=== PATIENT | female | born 1995 | race Hispanic/Latino ===

== ENCOUNTER 2017-07-26 00:27 | Emergency (ER) | payer SELFPAY ==
--- NOTE | 2017-07-26 00:47 | ER ---
Nurse's Notes [facility] Name: Radha Goodson Age: 21 yrs Sex: Female : 1995 Arrival Date: 07/26/2017 Time: 00:30 Bed 8 Private MD: Diagnosis: Acute upper respiratory infection, unspecified Presentation: 07/26 00:42 Presenting complaint: Patient states: fever, chills, body aches, and sore throat since aa1 yesterday. Transition of care: patient was not received from another setting of care. Onset of symptoms was July 25, 2017. Initial Sepsis Screen: Does the patient meet any 2 criteria? No. Patient's initial sepsis screen is negative. Does the patient have a suspected source of infection? No. Patient's initial sepsis screen is negative. Care prior to arrival: None. 00:42 Method Of Arrival: Ambulatory aa1 00:42 Acuity: SACHIN 4 aa1 Historical: - Allergies: 00:44 No Known Allergies; aa1 - Home Meds: 00:44 None [Active]; aa1 - PMHx: 00:44 None; aa1 - PSHx: 00:44 None; aa1 - Immunization history:: Flu vaccine is not up to date. - Social history:: Smoking status: Patient/guardian denies using tobacco. Screenin:46 Abuse screen: Denies threats or abuse. Denies injuries from another. Nutritional aa1 screening: No deficits noted. Tuberculosis screening: No symptoms or risk factors identified. Fall Risk None identified. Assessment: 00:40 Reassessment: Pt refused flu swab, provider notified. aa1 00:46 General: Appears in no apparent distress. comfortable, Behavior is calm, cooperative, aa1 appropriate for age. Pain: Complains of pain in generalized Quality of pain is described as aching, Pain began 1 day ago. Neuro: Level of Consciousness is awake, alert, obeys commands, Oriented to person, place, time, situation. Respiratory: Airway is patent Respiratory effort is even, unlabored, Respiratory pattern is regular, symmetrical, Breath sounds are clear bilaterally. GI: No signs and/or symptoms were reported involving the gastrointestinal system. : No signs and/or symptoms were reported regarding the genitourinary system. EENT: Throat is clear Reports nasal discharge pain when swallowing. Derm: Skin is intact, is healthy with good turgor, Skin is pink, warm \T\ dry. Musculoskeletal: Circulation, motion, and sensation intact. Capillary refill < 3 seconds. 00:59 Reassessment: Patient appears in no apparent distress at this time. Patient is alert, aa1 oriented x 3, equal unlabored respirations, skin warm/dry/pink. Discussed d/c \T\ f/u instructions with pt; denies questions or concerns at this time. Vital Signs: 00:44 BP 137 / 69; Pulse 95; Resp 18; Temp 99.2; Pulse Ox 98% on R/A; Weight 68.04 kg; Height aa1 5 ft. 0 in. (152.40 cm); Pain 7/10; 00:44 Body Mass Index 29.29 (68.04 kg, 152.40 cm) aa1 ED Course: 00:30 Patient arrived in ED. am2 00:35 Mal Elkins PA is PHCP. jr8 00:35 Gordy Winters MD is Attending Physician. jr8 00:42 Kaya Frazier RN is Primary Nurse. aa1 00:43 Triage completed. aa1 00:44 Arm band placed on right wrist. Patient placed in an exam room, on a stretcher. aa1 00:46 Patient has correct armband on for positive identification. Bed in low position. Call aa1 light in reach. Pulse ox on. NIBP on. 01:00 No provider procedures requiring assistance completed. Patient did not have IV access aa1 during this emergency room visit. Administered Medications: No medications were administered Outcome: 00:46 Discharge ordered by . jr8 01:00 Discharged to home ambulatory, with significant other. aa1 01:00 Condition: good 01:00 Discharge instructions given to patient, significant other, Instructed on discharge instructions, follow up and referral plans. medication usage, Demonstrated understanding of instructions, follow-up care, medications, Prescriptions given X 3. 01:01 Patient left the ED. aa1 Signatures: Kaya Frazier RN RN aa1 Mal Elkins PA PA jr8 Laura Villela am2
--- NOTE | 2017-07-26 00:48 | EDPHYS ---
Physician Documentation [facility] Name: Radha Goodson Age: 21 yrs Sex: Female : 1995 Arrival Date: 07/26/2017 Time: 00:30 Bed 8 Private MD: ED Physician Gordy Winters HPI: 07/26 00:43 This 21 yrs old Female presents to ER via Ambulatory with complaints of Fever, jr8 Sore Throat, Body ache, Cold Symptoms. 00:43 The patient reports fever, not measured (subjective), that was measured at 101 degrees jr8 Fahrenheit. Onset: The symptoms/episode began/occurred acutely, yesterday. Modifying factors: The patient has had contact with sick significant other. Associated signs and symptoms: Pertinent positives: chills, cough, runny nose, sinus congestion, sore throat. Severity of symptoms: At their worst the symptoms were mild in the emergency department the symptoms are unchanged. The patient has not experienced similar symptoms in the past. The patient has not recently seen a physician. Historical: - Allergies: 00:44 No Known Allergies; aa1 - Home Meds: 00:44 None [Active]; aa1 - PMHx: 00:44 None; aa1 - PSHx: 00:44 None; aa1 - Immunization history:: Flu vaccine is not up to date. - Social history:: Smoking status: Patient/guardian denies using tobacco. ROS: 00:43 Eyes: Negative for injury, pain, redness, and discharge, Neck: Negative for injury, jr8 pain, and swelling, Cardiovascular: Negative for chest pain, palpitations, and edema, Abdomen/GI: Negative for abdominal pain, nausea, vomiting, diarrhea, and constipation, Back: Negative for injury and pain, MS/Extremity: Negative for injury and deformity, Skin: Negative for injury, rash, and discoloration, Neuro: Negative for headache, weakness, numbness, tingling, and seizure. 00:43 ENT: Positive for rhinorrhea, sinus congestion, sore throat, Negative for drainage from ear(s), ear pain, difficulty swallowing, difficulty handling secretions, hoarseness. 00:43 Respiratory: Positive for cough, with no reported sputum, Negative for dyspnea on exertion, shortness of breath, sputum production, wheezing. Exam: 00:43 Head/Face: Normocephalic, atraumatic. Eyes: Pupils equal round and reactive to light, jr8 extra-ocular motions intact. Lids and lashes normal. Conjunctiva and sclera are non-icteric and not injected. Cornea within normal limits. Periorbital areas with no swelling, redness, or edema. Neck: Trachea midline, no thyromegaly or masses palpated, and no cervical lymphadenopathy. Supple, full range of motion without nuchal rigidity, or vertebral point tenderness. No Meningismus. Cardiovascular: Regular rate and rhythm with a normal S1 and S2. No gallops, murmurs, or rubs. Normal PMI, no JVD. No pulse deficits. Respiratory: Lungs have equal breath sounds bilaterally, clear to auscultation and percussion. No rales, rhonchi or wheezes noted. No increased work of breathing, no retractions or nasal flaring. Abdomen/GI: Soft, non-tender, with normal bowel sounds. No distension or tympany. No guarding or rebound. No evidence of tenderness throughout. Back: No spinal tenderness. No costovertebral tenderness. Full range of motion. Skin: Warm, dry with normal turgor. Normal color with no rashes, no lesions, and no evidence of cellulitis. MS/ Extremity: Pulses equal, no cyanosis. Neurovascular intact. Full, normal range of motion. Neuro: Awake and alert, GCS 15, oriented to person, place, time, and situation. Cranial nerves II-XII grossly intact. Motor strength 5/5 in all extremities. Sensory grossly intact. Cerebellar exam normal. Normal gait. 00:43 ENT: External ear(s): are unremarkable, Ear canal(s): are normal, clear, TM's: are normal, no evidence of bulging, no dullness, no erythema, no fluid levels, no hemotympanum, no rupture, normal bony landmarks, normal mobility, Nose: External nose: no obvious acute abnormality, Nasal septum: is midline, Nasal mucosa: erythematous, moist, Turbinates: are swollen bilaterally, Mouth: Lips: moist, Oral mucosa: pink and intact, moist, Gums: pink, Tongue: is moist, Posterior pharynx: Airway: patent, Tonsils: are normal in appearance, no enlargement, no erythema, no exudate, no ulcerations, Uvula: midline, non-edematous, no erythema, swelling, is not appreciated, erythema, is not appreciated, exudate, is not appreciated. Vital Signs: 00:44 BP 137 / 69; Pulse 95; Resp 18; Temp 99.2; Pulse Ox 98% on R/A; Weight 68.04 kg; Height aa1 5 ft. 0 in. (152.40 cm); Pain 7/10; 00:44 Body Mass Index 29.29 (68.04 kg, 152.40 cm) aa1 MDM: 00:35 Patient medically screened. jr8 00:43 Data reviewed: vital signs, nurses notes, and as a result, I will discharge patient. jr8 Data interpreted: Pulse oximetry: on room air is 98 %. Interpretation: normal. Counseling: I had a detailed discussion with the patient and/or guardian regarding: the historical points, exam findings, and any diagnostic results supporting the discharge/admit diagnosis, the need for outpatient follow up, a family practitioner, to return to the emergency department if symptoms worsen or persist or if there are any questions or concerns that arise at home. ED course: Patient refuses swabs. Administered Medications: No medications were administered Disposition: 01:42 Co-signature as Attending Physician, Gordy Winters MD. ivan Disposition: 07/26/17 00:46 Discharged to Home. Impression: Acute upper respiratory infection, unspecified. - Condition is Stable. - Discharge Instructions: Upper Respiratory Infection, Adult. - Prescriptions for Prednisone 20 mg Oral Tablet - take 1 tablet by ORAL route once daily for 5 days; 5 tablet. Tessalon Perles 100 mg Oral Capsule - take 1 capsule by ORAL route every 8 hours As needed; 15 capsule. Zithromax Z- Saurabh 250 mg Oral Tablet - take 1 tablet by ORAL route as directed for 5 days Day 1 - take two (2) tablets one time. Day 2, 3, 4 , 5 take one (1) tablet once daily.; 6 tablet. - Work release form, Medication Reconciliation Form, Thank You Letter, Antibiotic Education, Prescription Opioid Use form. - Follow up: Private Physician; When: 1 week; Reason: Recheck today's complaints, Continuance of care, Re-evaluation by your physician. - Problem is new. - Symptoms have improved. Signatures: Kaya Frazier RN RN aa1 Gordy Winters MD MD pkl Roszak, Mal, PA PA jr8
== END 2017-07-26 01:01 | disposition home or self-care (01) ==
LOC: ER 00:27
DX: J06.9 Acute upper respiratory infection, unspecified (principal); R50.9 Fever, unspecified
CPT/HCPCS: 99283